=== PATIENT | female | born 1985 | race Caucasian/White ===

== ENCOUNTER 2018-09-15 05:59 | Inpatient (IN) ==
--- NOTE | 2018-09-15 07:20 | MH ---
cc: Ady Aviles MD DATE OF ADMISSION: 09/15/2018 HISTORY OF PRESENT ILLNESS: The patient is a 33-year-old female, 2, para 1. The patient estimated date of confinement is 09/18/2018. The patient is 39 weeks and 3 days, admitted for induction of labor, macrosomia with estimated weight at 9+ pounds. OBSTETRICAL HISTORY: Unremarkable. The patient is group B strep positive. Blood type is O positive. Patient's assessment was unremarkable. Genetic testing performed 05/07/2018 was negative. She had previous full-term delivery at 39 weeks, healthy male weighing 8 pounds, 2 ounces. PAST MEDICAL HISTORY: Denies any systemic or chronic disease. ALLERGIES: STATES SHE IS ALLERGIC TO CODEINE, PENICILLIN, AND AMOXICILLIN. PAST SURGICAL HISTORY: Status post tonsillectomy as a child. SOCIAL HISTORY: She is , unemployed, is a [id number] mom. The patient denies any use of alcohol, tobacco, or illicit substances. FAMILY HISTORY: Noncontributory. PHYSICAL EXAMINATION: GENERAL: The patient is a well-appearing, well-nourished female, in no acute distress. VITAL SIGNS: Stable. The patient's blood pressure is 120/82. Patient's pulse and respiratory rate are normal. heart tones are in the 140s. HEENT: No adenopathy or thyromegaly. Pupils are equally round and reactive to light. Sclerae are normal. LUNGS: Clear in all andrea. NECK: Supple. Full range of motion. CARDIAC: Regular rate and rhythm without murmur, rub, or gallop. ABDOMEN: Gravid, full-term, fundal height 42 cm. PELVIC: Infant is vertex. Cervix is 50%, soft, mid position, 2 cm. Clinical pelvimetry is adequate. EXTREMITIES: Symmetrical, full range of motion. No cyanosis, clubbing, or edema. NEUROLOGIC: Grossly intact, nonfocal. ASSESSMENT: The patient is 39 weeks and 3 days with good dating criteria, suspected macrosomia, previous history of an 8 pound, 2 ounce male without complication. The patient is scheduled for induction by initiation of Pitocin to be followed up with [facility]. She is GBS positive with a PENICILLIN ALLERGY and will receive the appropriate antibiotic. Ady Aviles MD SJC/ts , 08:45 PM , 08:50 PM
[2018-09-15] MEDS ORDERED: Oxytocin 30 Units/500ml Premix 30 UNITS/500 ML BAG IV.SIG PRN (07:39)
[2018-09-15] MEDS: Vancomycin Inj 1,000 MG in Sodium Chlor 0.9% Inj 250 ML IV.SIG SCH ×2 (08:33→22:42)
[2018-09-15 09:00] LABS: Baso % (Auto) 0.3 % (0.0-2.0); Eos # (Auto) 0.3 th/mm3 (0.0-0.4); Eos % (Auto) 2.9 % (0.0-4.0); Hematocrit 40.5 % (35.0-46.0); Hemoglobin 13.9 gm/dL (11.6-15.3); Lymph # (Auto) 2.4 th/mm3 (1.0-4.8); Lymph % (Auto) 24.7 % (9.0-44.0); Mean Corpuscular HGB Conc 34.4 % (32.0-36.0); Mean Corpuscular Hemoglobin 29.9 pg (27.0-34.0); Mean Corpuscular Volume 87.1 fL (80.0-100.0); Mean Platelet Volume 8.8 fL (7.0-11.0); Mono # (Auto) 0.6 th/mm3 (0.0-0.9); Neut # (Auto) 6.5 th/mm3 (1.8-7.7); Neut % (Auto) 66.1 % (16.0-70.0); Platelet Count 243 th/mm3 (150-450); Red Blood Count 4.65 mil/mm3 (4.00-5.30); White Blood Count 9.9 th/mm3 (4.0-11.0)
[2018-09-15 09:07] LABS: Bacteria,Urine Occasional /hpf; Bilirubin,Urine Negative (Negative); Clarity,Urine Hazy (Clear); Color,Urine Yellow (Yellw/Straw); Glucose,Urine (UA) Negative (Negative); Leukocyte Esterase,Urine Negative (Negative); Nitrite,Urine Negative (Negative); Specific Gravity,Urine 1.006 (1.002-1.035); Squamous Epithelial Cell,Urine 10 /hpf (0-5)
[2018-09-15] MEDS ORDERED: fentaNYL Citrate Inj 100 MCG/2 ML Ampul IV.PUSH PRN ×2 (11:05)
[2018-09-15] MEDS ORDERED: Sodium Chlor 0.9% Inj 500 ML IV.SIG PRN (11:05)
[2018-09-15] MEDS ORDERED: Sod Chloride 0.9% Inj 1,000 ML IV.CONT PRN (11:05)
[2018-09-15] MEDS ORDERED: Oxytocin 30 Units/500ml Premix 30 UNITS/500 ML BAG IV.SIG ONE (11:05)
[2018-09-15] MEDS ORDERED: Citric Acid/Sodium Citrate Liq 30 ML UDC PO SCH (11:15)
--- NOTE | 2018-09-15 12:25 | P.OBLABOR ---
Subjective Interval history: No c/o, currently on pitocin,UC q3-4 Objective Vital Signs: Vital Signs - 8 hr 09/15/18 06:44 09/15/18 06:45 09/15/18 08:37 Temperature 97.6 F Pulse Rate 78 77 Respiratory Rate 18 Blood Pressure 121/94 H 133/86 09/15/18 09:30 09/15/18 10:00 09/15/18 10:30 Temperature Pulse Rate 73 77 71 Respiratory Rate Blood Pressure 127/84 123/90 123/82 09/15/18 11:11 09/15/18 11:30 Temperature 98.0 F Pulse Rate 76 79 Respiratory Rate 17 Blood Pressure 128/86 130/92 H Objective: Pelvic Exam: Cervix: [mid position Dilatation: [2+] Effacement: 50] Station: [-2 Presentation: [vtx] Membranes: [facility]] Uterine Contractions: [3-4-] FHT's: Category: [1 Assessment and Plan - Diagnosis (1) Labor without complication Code(s): O80 - Encounter for full-term uncomplicated delivery Status: Acute - Plan expectant management, anticipate vaginal delivery
[2018-09-15] MEDS ORDERED: Diphtheria/Tetanus/Pertussis Vaccine Inj 0.5 ML Syringe IM ONE (16:00)
[2018-09-15] MEDS ORDERED: Measles/Mumps/Rubella Vaccine Inj 0.5 ML Vial SQ ONE (16:00)
[2018-09-15] MEDS ORDERED: Witch Hazel 50%/Glyderin 12.5% 40 Pad Jar RECTAL PRN (17:29)
[2018-09-15] MEDS ORDERED: Bisacodyl 10 MG Supp RECTAL PRN (17:29)
[2018-09-15] MEDS ORDERED: Naloxone Inj 0.4 MG/ML Vial IV.PUSH PRN (17:29)
[2018-09-15] MEDS ORDERED: Oxytocin 30 Units/500ml Premix 30 UNITS/500 ML BAG IV.CONT PRN (17:29)
[2018-09-15] MEDS ORDERED: Benzocaine 20% Top Spray 60 ML Can TOPICAL PRN (17:29)
--- NOTE | 2018-09-15 17:29 | P.OBDELI ---
Weeks Gestation: 39 Medical Induction of Labor: Yes Medical Induction Start Date: 09/15/18 Artificial Rupture of Membrane: Yes Artificial ROM Date: 09/15/18 Anesthesia: None Episiotomy: none Vaginal Delivery: Normal Presentation: Occiput anterior Nuchal Cord: None Delayed Cord Clamping (45 sec): No Placenta: Spontaneous delivery, 3 vessel cord Laceration: Vaginal, 2 deg Repair: Vicryl running Estimated blood loss (mL): 250 : Female Infant score (1 min): 8 score (5 min): 9
[2018-09-15] MEDS: Acetaminophen 325 MG Tablet PO PRN ×2 (18:32→22:39)
[2018-09-15] MEDS ORDERED: Zolpidem Tartrate 5 MG Tablet PO PRN (21:00)
[2018-09-15] MEDS: Senna/Docusate Sodium 8.6/50 MG Tablet PO SCH (21:57)
[2018-09-16] MEDS: Acetaminophen 325 MG Tablet PO PRN ×3 (04:38→22:27)
[2018-09-16] MEDS: Senna/Docusate Sodium 8.6/50 MG Tablet PO SCH ×2 (09:08→20:24)
--- NOTE | 2018-09-16 09:50 | P.PNOB ---
Subjective Post day: 1 Interval history: min bleeding, doing well Objective Vital Signs/I&O: Vital Signs 09/15/18 10:00 09/15/18 10:30 09/15/18 11:11 Temperature 98.0 F Pulse Rate 77 71 76 Respiratory Rate 17 Blood Pressure 123/90 123/82 128/86 09/15/18 11:30 09/15/18 12:30 09/15/18 13:00 Temperature Pulse Rate 79 76 70 Respiratory Rate Blood Pressure 130/92 H 120/81 128/82 09/15/18 13:30 09/15/18 13:42 09/15/18 13:43 Temperature Pulse Rate 76 80 Respiratory Rate 18 Blood Pressure 132/83 149/90 H 09/15/18 14:01 09/15/18 14:30 09/15/18 15:00 Temperature Pulse Rate 75 77 69 Respiratory Rate Blood Pressure 128/92 H 129/86 129/84 09/15/18 15:45 09/15/18 16:00 09/15/18 16:48 Temperature Pulse Rate 72 Respiratory Rate 18 18 Blood Pressure 142/90 H 09/15/18 16:49 09/15/18 17:01 09/15/18 17:02 Temperature 99.1 F Pulse Rate 92 H 85 Respiratory Rate 18 Blood Pressure 122/74 126/78 09/15/18 17:21 09/15/18 17:30 09/15/18 17:40 Temperature Pulse Rate 85 79 Respiratory Rate 18 18 Blood Pressure 126/88 126/88 09/15/18 20:30 09/16/18 08:00 Temperature 98.0 F 98.1 F Pulse Rate 67 63 Respiratory Rate 18 18 Blood Pressure 112/59 L 104/79 Intake & Output 09/15/18 09/16/18 09/16/18 18:59 06:59 18:59 Weight 83.915 kg Other: Weight On Admission 83.915 kg Result Diagrams: 09/15/18 06:40 Objective Remarks: GENERAL: Well-nourished, well-developed patient. CARDIOVASCULAR: Regular rate and rhythm without murmurs, gallops, or rubs. RESPIRATORY: Breath sounds equal bilaterally. No accessory muscle use. ABDOMEN/GI: Abdomen soft, non-tender. Fundus: Firm, non-tender at umbilicus. GENITOURINARY: Light to moderate bleeding. EXTREMITIES: No cyanosis or edema, non-tender, without signs of DVT. 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 [facility] Stop: 09/19/18 11:14 Fentanyl Citrate (Fentanyl Inj) 50 mcg IV.PUSH Q1H PRN PRN Reason: Pain Scale 3 - 5 Fentanyl Citrate (Fentanyl Inj) 100 mcg IV.PUSH Q1H PRN PRN Reason: PAIN SCALE 6 TO 10 Last Admin: 09/15/18 15:42 Dose: 100 mcg Oxytocin (Pitocin 30 Units/Ns 500 Ml Premix) 30 units in 500 mls @ 2 mls/hr IV.SIG TITRATE PRN; Protocol PRN Reason: For induction of labor Last Admin: 09/15/18 08:33 Dose: 2 milliunit/min, 2 mls/hr Vancomycin HCl 1,000 mg/ (Sodium Chloride) 250 mls @ 250 mls/hr IV.SIG Q12H [facility] Last Admin: 09/15/18 22:42 Dose: Not Given Lactated Ringer's (Lr 1000 Ml Inj) 1,000 mls @ 125 mls/hr IV.CONT .Q8H [facility] Last Admin: 09/15/18 22:43 Dose: Not Given Sodium Chloride (Ns Inj) 500 mls @ 1,000 mls/hr IV.SIG UNSCH PRN PRN Reason: SEE LABEL COMMENTS Sodium Chloride (Ns Inj) 1,000 mls @ 100 mls/hr IV.CONT .Q10H PRN PRN Reason: SEE LABEL COMMENTS Lactated Ringer's (Lr 1000 Ml Inj) 1,000 mls @ 3,000 mls/hr IV.SIG UNSCH PRN PRN Reason: compromise or epidural Oxytocin (Pitocin 30 Units/Ns 500 Ml Premix) 30 units in 500 mls @ 100 mls/hr IV.CONT UNSCH PRN PRN Reason: Heavy bleeding Ibuprofen (Motrin) 800 mg PO Q8H PRN PRN Reason: For Cramping Last Admin: 09/16/18 04:38 Dose: 800 mg Lactulose (Lactulose Liq) 30 ml PO DAILY PRN PRN Reason: SEVERE CONSITIPATION Lidocaine HCl (Xylocaine 1% Inj) 0.1 ml I-DERMAL PRN PRN PRN Reason: For IV start Stop: 09/18/18 11:04 Lidocaine HCl (Xylocaine 1% Inj) 10 ml INFILTRATN PRN PRN PRN Reason: For episiotomy repair Stop: 09/17/18 11:04 Mineral Oil (Muri-Lube Oil) 10 ml TOPICAL PRN PRN PRN Reason: PRN perineal massage Naloxone HCl (Narcan Inj) 0.1 mg IV.PUSH Q2M PRN PRN Reason: for opiate reversal Ondansetron HCl (Zofran Inj) 4 mg IV.PUSH Q6H PRN PRN Reason: NAUSEA OR VOMITING Ondansetron HCl (Zofran Odt) 4 mg PO Q6H PRN PRN Reason: NAUSEA OR VOMITING Oxytocin (Pitocin Inj) 20 unit IV.SIG ONCE PRN PRN Reason: For excessive bleeding Stop: 09/16/18 17:28 Senna/Docusate Sodium (Bessie-Colace) 1 tab PO BID [facility] Last Admin: 09/16/18 09:08 Dose: 1 tab Sennosides (Senokot) 17.2 mg PO Q12H PRN PRN Reason: Moderate Constipation Sodium Chloride (Ns Flush) 2 ml IV.FLUSH BID [facility] Last Admin: 09/16/18 09:17 Dose: Not Given Sodium Chloride (Ns Flush) 2 ml IV.FLUSH PRN PRN PRN Reason: FLUSH AFTER USING IV ACCESS Witch Mary/Glycerin (Tucks Pads) 1 applicatio RECTAL QID PRN PRN Reason: HEMORRHOIDS Last Admin: 09/15/18 19:35 Dose: 1 applicatio Zolpidem Tartrate (Ambien) 5 mg PO HS PRN PRN Reason: SLEEP Assessment and Plan - Diagnosis (1) Labor without complication Code(s): O80 - Encounter for full-term uncomplicated delivery Status: Acute - Plan ppd 1 cont routine care d/c home tomorrow
--- NOTE | 2018-09-17 07:59 | P.PNOB ---
Subjective Post day: 2 Interval history: Doing well Pain is controlled Baby is good Tolerating diet well Not . Objective Vital Signs/I&O: Vital Signs 09/16/18 08:00 09/16/18 20:00 Temperature 98.1 F 97.9 F Pulse Rate 63 74 Respiratory Rate 18 18 Blood Pressure 104/79 128/87 Result Diagrams: 09/15/18 06:40 Objective Remarks: GENERAL: Well-nourished, well-developed patient. CARDIOVASCULAR: Regular rate and rhythm without murmurs, gallops, or rubs. RESPIRATORY: Breath sounds equal bilaterally. No accessory muscle use. ABDOMEN/GI: Abdomen soft, non-tender. Fundus: Firm, non-tender at umbilicus. GENITOURINARY: Light to moderate bleeding. EXTREMITIES: No cyanosis or edema, non-tender, without signs of DVT. 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 [facility] Stop: 09/19/18 11:14 Fentanyl Citrate (Fentanyl Inj) 50 mcg IV.PUSH Q1H PRN PRN Reason: Pain Scale 3 - 5 Fentanyl Citrate (Fentanyl Inj) 100 mcg IV.PUSH Q1H PRN PRN Reason: PAIN SCALE 6 TO 10 Last Admin: 09/15/18 15:42 Dose: 100 mcg Oxytocin (Pitocin 30 Units/Ns 500 Ml Premix) 30 units in 500 mls @ 2 mls/hr IV.SIG TITRATE PRN; Protocol PRN Reason: For induction of labor Last Admin: 09/15/18 08:33 Dose: 2 milliunit/min, 2 mls/hr Vancomycin HCl 1,000 mg/ (Sodium Chloride) 250 mls @ 250 mls/hr IV.SIG Q12H [facility] Last Admin: 09/15/18 22:42 Dose: Not Given Lactated Ringer's (Lr 1000 Ml Inj) 1,000 mls @ 125 mls/hr IV.CONT .Q8H [facility] Last Admin: 09/15/18 22:43 Dose: Not Given Sodium Chloride (Ns Inj) 500 mls @ 1,000 mls/hr IV.SIG UNSCH PRN PRN Reason: SEE LABEL COMMENTS Sodium Chloride (Ns Inj) 1,000 mls @ 100 mls/hr IV.CONT .Q10H PRN PRN Reason: SEE LABEL COMMENTS Lactated Ringer's (Lr 1000 Ml Inj) 1,000 mls @ 3,000 mls/hr IV.SIG UNSCH PRN PRN Reason: compromise or epidural Oxytocin (Pitocin 30 Units/Ns 500 Ml Premix) 30 units in 500 mls @ 100 mls/hr IV.CONT UNSCH PRN PRN Reason: Heavy bleeding Ibuprofen (Motrin) 800 mg PO Q8H PRN PRN Reason: For Cramping Last Admin: 09/16/18 22:26 Dose: 800 mg Lactulose (Lactulose Liq) 30 ml PO DAILY PRN PRN Reason: SEVERE CONSITIPATION Lidocaine HCl (Xylocaine 1% Inj) 0.1 ml I-DERMAL PRN PRN PRN Reason: For IV start Stop: 09/18/18 11:04 Lidocaine HCl (Xylocaine 1% Inj) 10 ml INFILTRATN PRN PRN PRN Reason: For episiotomy repair Stop: 09/17/18 11:04 Mineral Oil (Muri-Lube Oil) 10 ml TOPICAL PRN PRN PRN Reason: PRN perineal massage Naloxone HCl (Narcan Inj) 0.1 mg IV.PUSH Q2M PRN PRN Reason: for opiate reversal Ondansetron HCl (Zofran Inj) 4 mg IV.PUSH Q6H PRN PRN Reason: NAUSEA OR VOMITING Ondansetron HCl (Zofran Odt) 4 mg PO Q6H PRN PRN Reason: NAUSEA OR VOMITING Senna/Docusate Sodium (Bessie-Colace) 1 tab PO BID [facility] Last Admin: 09/16/18 20:24 Dose: 1 tab Sennosides (Senokot) 17.2 mg PO Q12H PRN PRN Reason: Moderate Constipation Sodium Chloride (Ns Flush) 2 ml IV.FLUSH BID [facility] Last Admin: 09/16/18 20:25 Dose: Not Given Sodium Chloride (Ns Flush) 2 ml IV.FLUSH PRN PRN PRN Reason: FLUSH AFTER USING IV ACCESS Witch Mary/Glycerin (Tucks Pads) 1 applicatio RECTAL QID PRN PRN Reason: HEMORRHOIDS Last Admin: 09/15/18 19:35 Dose: 1 applicatio Zolpidem Tartrate (Ambien) 5 mg PO HS PRN PRN Reason: SLEEP Assessment and Plan - Plan PPD #2 Home today RTO in 2 weeks
[2018-09-17] MEDS: Senna/Docusate Sodium 8.6/50 MG Tablet PO SCH (09:20)
== END 2018-09-17 15:19 | disposition home or self-care (01) ==
LOC: H2E 05:59 → H1EA 19:41
PROVIDERS: ADMIT Obstetrics & Gynecology; ATTEND Obstetrics & Gynecology